=== PATIENT | female | born 1995 | race Caucasian/White ===

== ENCOUNTER 2018-11-25 09:41 | Emergency (ER) | payer BC ==
[2018-11-25] MEDS ORDERED: Fluorescein Sodium TOPICAL* 1 MG TEST STRIP OPHTHALMIC ONE (11:10)
[2018-11-25] MEDS ORDERED: Tetracaine 0.5% OPTH.SOL 4 ML* 1 DROP BTL ONE (11:10)
[2018-11-25 12:16] VITALS: BP 134/78
--- NOTE | 2018-11-25 18:04 | ED ---
Throat Pain/Nasal Congestion - HPI Summary HPI Summary: Patient is a 23-year-old female who presents emergency department for redness, swelling and drainage to left eye times one day. Patient states she wears daily disposable contacts and occasionally sleeps in them. She states she slipped in the mid yesterday and woke up with irritation and drainage from left eye. Denies breast for symptoms such as sore throat, nasal congestion, headache. Denies concern for STDs, dysuria, vaginal discharge. Symptoms are mild in severity. Touching affected area makes symptoms worse. Rest makes symptoms better. Patient a college student in the area. - History of Current Complaint Chief Complaint: EDEyeProblem Time Seen by Provider: 11/25/18 11:10 Hx Obtained From: Patient - Allergies/Home Medications Allergies/Adverse Reactions: Allergies Allergy/AdvReac Type Severity Reaction Status Date / Time No Known Allergies Allergy Verified 11/25/18 09:42 Home Medications: Home Medications Norgestrel-Ethinyl Estradiol [Cryselle-28 Tablet] 1 tab PO DAILY WITH MEAL 11/25 [History Confirmed 11/25/18] Omeprazole 20 mg PO DAILY 11/25/18 [History Confirmed 11/25/18] PMH/Surg Hx/FS Hx/Imm Hx Previously Healthy: Yes Infectious Disease History: No Infectious Disease History: Denies: Traveled Outside the [place] in Last 30 Days - Family History Known Family History: Positive: Non-Contributory - Social History Occupation: Student Lives: Dormitory/Roommates Alcohol Use: None Substance Use Type: Reports: Marijuana Smoking Status (MU): Current Some Day Smoker Review of Systems Constitutional: Negative Negative: Fever, Chills Positive: Drainage, Erythema ENT: Negative Negative: Sore Throat, Ear Ache, Nasal Discharge Respiratory: Negative Negative: Cough Neurological: Negative All Other Systems Reviewed And Are Negative: Yes Physical Exam Triage Information Reviewed: Yes Vital Signs On Initial Exam: Initial Vitals Temp Pulse Resp BP Pulse Ox 98 F 80 18 120/88 98 11/25/18 09:42 11/25/18 09:42 11/25/18 09:42 11/25/18 09:42 11/25/18 09:42 Vital Signs Reviewed: Yes Appearance: Positive: Well-Appearing - Pt. sitting up in bed in NAD. Friend present. Skin: Positive: Warm, Dry Head/Face: Positive: Normal Head/Face Inspection Eyes: Positive: Other: - Right eye unremarkable. Left eye is mild injected with mild edema to upper lid. Full ROM of EOM with minimal pain. Anterior chamber clear. ENT: Positive: Pharynx normal, TMs normal Neck: Positive: Supple Neurological: Positive: Normal, CN Intact II-III Psychiatric: Positive: Affect/Mood Appropriate Procedures - Procedure Summary Procedure Summary: Left eye was anesthetized with tetracaine and fluorescein dye was applied. Eye was examined under [place] lamp. There is a small area of uptake of the cornea at 8:00. Eyelid was everted and no foreign body noted. Diagnostics - Vital Signs Vital Signs Temp Pulse Resp BP Pulse Ox 11/25/18 12:15 99.2 F 57 14 134/78 97 11/25/18 09:42 98 F 80 18 120/88 98 - Laboratory Lab Statement: Any lab studies that have been ordered have been reviewed, and results considered in the medical decision making process. EENT Course/Dx - Course Course Of Treatment: Patient presenting with left conjunctivitis. Suspect secondary to contact lens use. She does have a very smoker to original exam. We'll treat with ciprofloxacin to cover pseudomonas. Advised patient to apply warm compresses to eye. To not wear contacts until symptoms resolve. Follow up with [facility] on Wednesday and return to the ER over the weekend if symptoms change or worsen. Patient understands and agrees with plan. - Differential Diagnoses Differential Diagnoses: Conjunctivitis, Corneal Abrasion, Keratitis - Diagnoses Provider Diagnoses: Conjunctivitis, Corneal abrasion Discharge - Sign-Out/Discharge Documenting (check all that apply): Patient Departure Patient Received Moderate/Deep Sedation with Procedure: No - Discharge Plan Condition: Good Disposition: HOME Prescriptions: Ciprofloxacin 0.3% OPTH.CHARLY* [Cipro 0.3% Opth*] 2 drop LEFT EYE Q2H #1 btl Patient Education Materials: Corneal Abrasion (ED), Conjunctivitis (ED) Referrals: [facility] @ [Outside] Additional Instructions: Schedule a follow up appointment with health clinic Use antibiotic drops as directed Apply warm compresses to eye at least 3-4 x a day Do not wear contacts until symptoms resolve Return to ER for increased pain, swelling, redness, or if concerned - Billing Disposition and Condition Condition: GOOD Disposition: Home
== END 2018-11-25 12:15 | disposition home or self-care (01) ==
LOC: ED 09:41
DX: H10.9 Unspecified conjunctivitis (principal); S05.02XA Injury of conjunctiva and corneal abrasion without foreign body, left eye, initial encounter; X58.XXXA Exposure to other specified factors, initial encounter; Y92.9 Unspecified place or not applicable; F17.200 Nicotine dependence, unspecified, uncomplicated; W01.0XXA Fall on same level from slipping, tripping and stumbling without subsequent striking against object, initial encounter
CPT/HCPCS: 99282; A9270-GY